=== PATIENT | male | born 1960 | race Two or more races ===

== ENCOUNTER 2023-05-30 08:29 | Inpatient (IN) | payer OTHER, MEDICAID ==
[2023-05-30] VITALS (29 sets, daily range): BP systolic 77–120; BP diastolic 46–57; PULSE 82–118; RESP 16–40; TEMP 99.1–100.6; O2SAT 85–100
[~2023-05-30] VITALS: Ht 167.6 cm; Wt 135.4 kg
[2023-05-30] MEDS: DOPamine 1600MCG/ML D5W 250 ML IV SCH (08:41)
[2023-05-30] MEDS: MIDAZOLAM DRIP 50 mg/50mL 50 ML IV SCH (08:45)
[2023-05-30] MEDS: EPINEPHrine HCL 250 ML IV SCH (08:45)
[2023-05-30] MEDS: SODIUM BICARB 8.4% 50Meq/50ml SYR Vial IV ONE (08:46)
[2023-05-30] MEDS: SODIUM BICARB 8.4% 50Meq/50ml SYR INJ ONE (08:59)
[2023-05-30] MEDS: EPINEPHrine HCL 250 ML IV ONE (08:59)
[2023-05-30] MEDS: AMIODARONE BOLUS KIT 100 ML IV ONE (08:59)
[2023-05-30 09:05] LABS: Eosinophils # (auto) 0 10 ^3/uL (0-0.8); Lymphocytes % (auto) 18.3 % (10.0-50.0); Mean Corpuscular Volume 84.9 fL (80.0-100.0); Monocytes # (auto) 0.4 10 ^3/uL (0-1.3)
[2023-05-30 09:08] LABS: Basophils # (auto) 0 10 ^3/uL (0-0.2); Basophils % (auto) 0.2 % (0.0-2.0); Eosinophils % (auto) 0.2 % (0.0-7.0); Hematocrit 36.3 % (41.0-53.0); Hemoglobin 11.5 g/dL (13.5-17.5); Lymphocytes # (auto) 2.5 10 ^3/uL (0.4-5.4); Mean Corpuscular Hgb Conc. 31.8 g/dL (32.0-36.0); Monocytes % (auto) 2.6 % (0.0-12.0); Neutrophils # (auto) 10.8 10 ^3/uL (1.6-8.6); Neutrophils % (auto) 78.7 % (37.0-80.0); Red Blood Cells 4.27 10^6/uL (4.5-5.90); Red Cell Distribution Width 14.1 % (11.8-14.3); White Blood Cell 13.7 10^3/uL (4.4-10.8)
[2023-05-30 09:25] LABS: Alanine Aminotransferase 234 U/L (7-40); Albumin 2.9 g/dL (3.2-4.8); Alkaline Phosphatase 82 U/L (46-116); Anion Gap 15 (5-15); Aspartate Aminotransferase 210 U/L (13-40); BUN/Creatinine Ratio 14.7 (10.0-20.0); Blood Urea Nitrogen 10 mg/dL (9-23); Calcium 7.5 mg/dL (8.7-10.4); Carbon Dioxide 25 mmol/L (20-30); Chloride 98 mmol/L (98-107); Glucose 291 mg/dL (74-106); Magnesium 2.5 mg/dL (1.6-2.6); Potassium 3.4 mmol/L (3.5-5.1); Sodium 138 mmol/L (136-145)
[2023-05-30 09:26] LABS: Bilirubin, Total 0.3 mg/dL (0.2-1.0); Total Protein 5.1 g/dL (5.7-8.2)
[2023-05-30 09:28] LABS: INR 1.8 (0.9-1.15); Partial Thromboplastin Time 34.4 SEC (24.5-34.5); Prothrombin Time 18.2 sec (9.3-11.8)
[2023-05-30] MEDS: NOREPINEPHRINE 8 MG/250ML KIT 250 ML IV ONE (09:45)
[2023-05-30] MEDS: AMIODARONE 450mg/250ml AE 250 ML IV SCH ×2 (09:52→15:12)
[2023-05-30] MEDS: NOREPINEPHRINE 8 MG/250ML KIT 250 ML IV SCH (09:53)
[2023-05-30 10:01] LABS: Base Excess -4.2 mmol/L (-2.0-2.0)
[2023-05-30 11:03] LABS: COVID19 ANTIGEN SOFIA FIA NEGATIVE (NEGATIVE)
[2023-05-30 11:07] LABS: Rapid Influenza A Negative (Negative); Rapid Influenza B Negative (Negative)
[2023-05-30] MEDS ORDERED: HEPARIN DRIP/D5W 100UNITS/ML 250 ML IV SCH (11:30)
[2023-05-30] MEDS: IOHEXOL 350 MG/ML 100ML IJ ONE (11:49)
[2023-05-30] MEDS: PHENYLEPHRINE IV 250 ML IV ONE (11:56)
[2023-05-30] MEDS: VASOPRESSIN 20 UNITS in SODIUM CHL 0.9% 99 ML IV SCH (11:57)
[2023-05-30] MEDS ORDERED: HEPARIN SODIUM (PORCINE) 5000 UNITS/ML 1ML VIAL IV ONE (12:00)
[2023-05-30] MEDS: AZITHROMYCIN 500MG/ 250ML 250 ML IV ONE (12:24)
[2023-05-30 12:35] LABS: Urine Bacteria NONE SEEN /hpf (None Seen); Urine Blood 1+ /uL (Negative); Urine Clarity Clear (Clear); Urine Color Colorless (Yellow); Urine Mucus FEW (None Seen); Urine Protein, UAD 1+ (Negative); Urine Specific Gravity 1.031 (1.001-1.035); Urine Urobilinogen Normal (Negative); Urine WBC 14 /hpf (0 - 3); Urine pH 5.5 (5.0-8.0)
[2023-05-30 12:41] LABS: Amphetamine Screen, Urine Neg (NEGATIVE); Barbiturate Scree,Urine Neg (NEGATIVE); Benzodiazephine Screen, Urine Pos (NEGATIVE); Cocaine Screen, Urine Neg (NEGATIVE); Opiate Scree,Urine Neg (NEGATIVE)
[2023-05-30 12:42] LABS: Cannabinoid Screen, Urine Neg (NEGATIVE); Phencyclidine Screen, Urine Neg (NEGATIVE)
[2023-05-30] MEDS: ALBUTEROL SULF 2.5 MG/0.5ML(0.5%) NEB SOLN NEB ONE (12:42)
[2023-05-30] MEDS: PIPERACILLIN-TAZOB 3.375GM 100 ML IV ONE (12:55)
[2023-05-30] MEDS ORDERED: ONDANSETRON HCL 4 MG/2 ML VIAL IV PRN (13:15)
[2023-05-30] MEDS ORDERED: DEXTROSE (50%) 50ML SYRG IV PRN (13:15)
[2023-05-30] MEDS ORDERED: VANCOMYCIN PER PHARMACY 0 MG IV SCH (13:15)
[2023-05-30 13:55] LABS: INR 1.11 (0.9-1.15); Prothrombin Time 11.6 sec (9.3-11.8)
[2023-05-30] MEDS: POTASSIUM CHL 20MEQ/100ML 100 ML IV ONE (14:50)
[2023-05-30] MEDS: VANCOMYCIN 1GM/200ML 200 ML IV SCH (14:52)
[2023-05-30] MEDS: CEFEPIME 2GM/50ML NS 50 ML IV SCH (15:02)
[2023-05-30 15:04] LABS: Lactic Acid w/Reflex 3.3 mmol/L (0.4-2.0)
[2023-05-30] MEDS: fentaNYL Drip 2500mCg/250mlNS 250 ML IV SCH ×2 (15:41→17:06)
[2023-05-30] MEDS: ACETAMINOPHEN 650 mg PER 20.3 mL UD ONE (16:01)
[2023-05-30] MEDS: ACETAMINOPHEN 650 mg PER 20.3 mL UD PO PRN (16:18)
[2023-05-30 16:55] LABS: Free T3 3.39 pg/mL (2.3-4.2); Free T4 (Free Thyroxine) 1.17 ng/dL (0.89-1.76)
[2023-05-30] MEDS: fentaNYL Drip 2500mCg/250mlNS 250 ML IV ONE (17:10)
[2023-05-30] MEDS: InsuLIN REG 1unit/0.01ml Soln (100units/ml) SC SCH (18:00)
[2023-05-30] MEDS: ACCU-CHEK COMFORT CURVE STRIP VI SCH (18:00)
[2023-05-30] MEDS: ENOXAPARIN SOD 150 MG/1 ML SYRINGE SC SCH (21:39)
[2023-05-30] MEDS: NYSTATIN TOPICAL POWDER 15GM TOP SCH (21:49)
[2023-05-31] VITALS (106 sets, daily range): BP systolic 89–139; BP diastolic 29–71; PULSE 76–89; RESP 15–26; TEMP 98.3–101.5; O2SAT 94–100
[2023-05-31 04:07] LABS: Basophils # (auto) 0 10 ^3/uL (0-0.2); Eosinophils # (auto) 0 10 ^3/uL (0-0.8); Monocytes # (auto) 0.7 10 ^3/uL (0-1.3)
[2023-05-31 04:10] LABS: Hematocrit 39.3 % (41.0-53.0); Lymphocytes # (auto) 1.1 10 ^3/uL (0.4-5.4); Lymphocytes % (auto) 5.6 % (10.0-50.0); Mean Corpuscular Hemoglobin 27.3 pg (28.0-32.0); Mean Corpuscular Volume 82.7 fL (80.0-100.0); Monocytes % (auto) 3.5 % (0.0-12.0); Neutrophils % (auto) 90.9 % (37.0-80.0); Red Blood Cells 4.76 10^6/uL (4.5-5.90); Red Cell Distribution Width 14.2 % (11.8-14.3); White Blood Cell 19.9 10^3/uL (4.4-10.8)
[2023-05-31 04:33] LABS: Alanine Aminotransferase 223 U/L (7-40); Albumin 3.7 g/dL (3.2-4.8); Alkaline Phosphatase 87 U/L (46-116); Anion Gap 11 (5-15); Aspartate Aminotransferase 98 U/L (13-40); BUN/Creatinine Ratio 11.8 (10.0-20.0); Bilirubin, Total 0.4 mg/dL (0.2-1.0); Blood Urea Nitrogen 10 mg/dL (9-23); Calcium 9.1 mg/dL (8.5-10.1); Carbon Dioxide 24 mmol/L (20-30); Chloride 99 mmol/L (98-107); Cholesterol 100 mg/dL (< 200); Glucose 341 mg/dL (74-106); HDL Cholesterol 45 mg/dL (40-59); LDL Cholesterol 36 mg/dL (< 100); Potassium 4.1 mmol/L (3.5-5.1); Sodium 134 mmol/L (136-145); Total Protein 6.7 g/dL (5.7-8.2); Triglycerides 72 mg/dL (< 150)
[2023-05-31 04:55] LABS: Magnesium 2.1 mg/dL (1.6-2.6)
[2023-05-31 06:23] LABS: Base Excess -0.3 mmol/L (-2.0-2.0)
[2023-05-31] MEDS ORDERED: ENOXAPARIN SOD 40 MG/0.4 ML SYRINGE SC SCH ×2 (10:00→14:03)
[2023-05-31] MEDS ORDERED: DEXTROSE (50%) 50ML SYRG IV PRN (10:30)
[2023-05-31] MEDS: ACCU-CHEK COMFORT CURVE STRIP VI SCH (11:10)
[2023-05-31] MEDS: InsuLIN REG 1unit/0.01ml Soln (100units/ml) SC SCH (11:55)
[2023-05-31] MEDS: ALBUTEROL SULF 2.5 MG/0.5ML(0.5%) NEB SOLN NEB SCH (12:18)
[2023-05-31] MEDS: IPRATROPIUM BROM 0.5 MG/2.5ML INH SOL NEB SCH (12:18)
[2023-05-31] MEDS: LIDOCAINE 1% (LOCAL ANESTH.) PF 5ml SDV ID ONE (15:07)
[2023-05-31] MEDS: SODIUM CHLOR 0.9% PF (SALINE LOCK) 10ML VIAL/SYR IV SCH (21:42)
[2023-06-01] VITALS (107 sets, daily range): BP systolic 78–156; BP diastolic 25–87; PULSE 63–93; RESP 13–24; TEMP 98.6–100.9; O2SAT 92–100
[2023-06-01 03:49] LABS: Basophils % (auto) 0.3 % (0.0-2.0); Eosinophils # (auto) 0 10 ^3/uL (0-0.8); Hematocrit 34.8 % (41.0-53.0); Hemoglobin 11.3 g/dL (13.5-17.5); Monocytes # (auto) 0.7 10 ^3/uL (0-1.3); Neutrophils # (auto) 13.7 10 ^3/uL (1.6-8.6)
[2023-06-01 03:52] LABS: Basophils # (auto) 0.1 10 ^3/uL (0-0.2); Eosinophils % (auto) 0.1 % (0.0-7.0); Lymphocytes # (auto) 1.8 10 ^3/uL (0.4-5.4); Lymphocytes % (auto) 11.2 % (10.0-50.0); Mean Corpuscular Hemoglobin 26.6 pg (28.0-32.0); Mean Corpuscular Hgb Conc. 32.3 g/dL (32.0-36.0); Mean Corpuscular Volume 82.3 fL (80.0-100.0); Monocytes % (auto) 4.3 % (0.0-12.0); Neutrophils % (auto) 84.1 % (37.0-80.0); Red Blood Cells 4.23 10^6/uL (4.5-5.90); Red Cell Distribution Width 14.5 % (11.8-14.3); White Blood Cell 16.3 10^3/uL (4.4-10.8)
[2023-06-01 04:10] LABS: Alanine Aminotransferase 141 U/L (7-40); Albumin 3.5 g/dL (3.2-4.8); Alkaline Phosphatase 79 U/L (46-116); Anion Gap 6 (5-15); Aspartate Aminotransferase 61 U/L (13-40); BUN/Creatinine Ratio 24.3 (10.0-20.0); Bilirubin, Total 0.4 mg/dL (0.2-1.0); Blood Urea Nitrogen 17 mg/dL (9-23); Carbon Dioxide 28 mmol/L (20-30); Chloride 102 mmol/L (98-107); Potassium 3.6 mmol/L (3.5-5.1); Sodium 136 mmol/L (136-145); Total Protein 6.2 g/dL (5.7-8.2)
[2023-06-01 04:29] LABS: INR 1.08 (0.9-1.15); Partial Thromboplastin Time 41.2 SEC (24.5-34.5); Prothrombin Time 11.3 sec (9.3-11.8)
[2023-06-01 04:31] LABS: Glucose 210 mg/dL (74-106)
[2023-06-01 07:05] LABS: Base Excess 1.8 mmol/L (-2.0-2.0)
[2023-06-01] MEDS ORDERED: ENOXAPARIN SOD 40 MG/0.4 ML SYRINGE SC SCH (10:00)
[2023-06-01] MEDS: PANTOPRAZOLE 40 MG/10 ML VIAL INJ IV SCH (10:10)
[2023-06-01] MEDS: APIXABAN 5 MG TAB PO SCH (10:11)
[2023-06-01] MEDS: HYDROCORTISONE SOD SUCC 100 MG/2ML INJ VIAL IV SCH (10:11)
[2023-06-01] MEDS: AMIODARONE HCL 200 MG TAB PO SCH (10:11)
[2023-06-01] MEDS: FLECAINIDE ACETATE 50 MG TAB PO SCH (22:08)
[2023-06-02] VITALS (60 sets, daily range): BP systolic 110–154; BP diastolic 55–82; PULSE 80–105; RESP 16–25; TEMP 97–99.9; O2SAT 92–98
[2023-06-02 04:15] LABS: Basophils # (auto) 0 10 ^3/uL (0-0.2); Basophils % (auto) 0.2 % (0.0-2.0); Eosinophils # (auto) 0 10 ^3/uL (0-0.8); Hematocrit 32.1 % (41.0-53.0); Hemoglobin 10.6 g/dL (13.5-17.5); Lymphocytes # (auto) 1.2 10 ^3/uL (0.4-5.4); Lymphocytes % (auto) 12.6 % (10.0-50.0); Mean Corpuscular Hemoglobin 27.5 pg (28.0-32.0); Mean Corpuscular Hgb Conc. 33.2 g/dL (32.0-36.0); Mean Corpuscular Volume 82.9 fL (80.0-100.0); Monocytes # (auto) 0.4 10 ^3/uL (0-1.3); Monocytes % (auto) 4.6 % (0.0-12.0); Neutrophils # (auto) 7.8 10 ^3/uL (1.6-8.6); Neutrophils % (auto) 82.6 % (37.0-80.0); Red Blood Cells 3.87 10^6/uL (4.5-5.90); Red Cell Distribution Width 14.4 % (11.8-14.3); White Blood Cell 9.5 10^3/uL (4.4-10.8)
[2023-06-02 05:00] LABS: Alanine Aminotransferase 93 U/L (7-40); Alkaline Phosphatase 74 U/L (46-116)
[2023-06-02 05:01] LABS: Albumin 3.3 g/dL (3.2-4.8); Anion Gap 6 (5-15); Aspartate Aminotransferase 59 U/L (13-40); BUN/Creatinine Ratio 30.9 (10.0-20.0); Bilirubin, Total 0.4 mg/dL (0.2-1.0); Blood Urea Nitrogen 17 mg/dL (9-23); Carbon Dioxide 27 mmol/L (20-30); Chloride 103 mmol/L (98-107); Glucose 203 mg/dL (74-106); Potassium 4.3 mmol/L (3.5-5.1); Sodium 136 mmol/L (136-145)
[2023-06-02 07:23] LABS: Base Excess 2.2 mmol/L (-2.0-2.0)
[2023-06-02 08:36] LABS: Hepatitis B Surface Antigen Negative (Negative)
[2023-06-02 08:57] LABS: Hepatitis A Ab IgM Negative
[2023-06-02 08:58] LABS: Hepatitis B Core IgM Negative; Hepatitis C Antibody Negative (Negative)
[2023-06-02] MEDS: Glucerna 1.2 Cal 1Liter BOTTLE GT SCH (21:35)
[2023-06-03] VITALS (114 sets, daily range): BP systolic 117–168; BP diastolic 56–85; PULSE 67–96; RESP 14–26; TEMP 97.7–99.7; O2SAT 94–99
[2023-06-03 07:23] LABS: Base Excess 1.5 mmol/L (-2.0-2.0)
[2023-06-03] MEDS: METOPROLOL TARTRATE 25 MG TAB GT ONE (11:07)
[2023-06-03] MEDS: VANCOMYCIN 1GM/200ML 200 ML IV SCH (12:05)
[2023-06-03] MEDS: METOPROLOL TARTRATE 25 MG TAB GT SCH (21:45)
[2023-06-04] VITALS (117 sets, daily range): BP systolic 114–180; BP diastolic 57–107; PULSE 66–118; RESP 12–27; TEMP 97.3–99.5; O2SAT 90–99
[2023-06-04 06:54] LABS: Base Excess 2.6 mmol/L (-2.0-2.0)
[2023-06-04] MEDS: hydrALAZINE HCL 20 MG/ML VL IV PRN (13:11)
[2023-06-04] MEDS: METOPROLOL TARTRATE 25 MG TAB GT SCH (21:27)
[2023-06-05] VITALS (105 sets, daily range): BP systolic 111–188; BP diastolic 57–106; PULSE 73–113; RESP 10–26; TEMP 97.9–98.9; O2SAT 93–98
[2023-06-05 04:14] LABS: Hematocrit 36.2 % (41.0-53.0); Hemoglobin 11.8 g/dL (13.5-17.5)
[2023-06-05 04:18] LABS: Mean Corpuscular Hemoglobin 26.7 pg (28.0-32.0); Mean Corpuscular Hgb Conc. 32.6 g/dL (32.0-36.0); Mean Corpuscular Volume 81.8 fL (80.0-100.0); Red Blood Cells 4.42 10^6/uL (4.5-5.90); Red Cell Distribution Width 14.5 % (11.8-14.3); White Blood Cell 12.3 10^3/uL (4.4-10.8)
[2023-06-05 04:22] LABS: Chloride 104 mmol/L (98-107); Potassium 3.8 mmol/L (3.5-5.1); Sodium 137 mmol/L (136-145)
[2023-06-05 04:23] LABS: Anion Gap 6 (5-15); Carbon Dioxide 27 mmol/L (20-30)
[2023-06-05 04:24] LABS: Calcium 8.8 mg/dL (8.7-10.4)
[2023-06-05 04:28] LABS: BUN/Creatinine Ratio 31.1 (10.0-20.0); Blood Urea Nitrogen 14 mg/dL (9-23); Glucose 179 mg/dL (74-106)
[2023-06-05 04:33] LABS: Basophils % (manual) 0 (0.0-2.0); Blast Cells 0; Eosinophils % (manual) 0 (0-7); Metamyelocytes % 0; Promyelocytes % 0; Reactive Lymphocytes 0
[2023-06-05 07:34] LABS: Base Excess 0.8 mmol/L (-2.0-2.0)
[2023-06-05 08:06] LABS: Anisocytosis Slight; Band Neutrophils % (manual) 6; Lymphocytes % (manual) 12 (10.0-50.0); Monocytes % (manual) 7 (0-12); Myelocytes % 1; Platelet Estimate Adequate
[2023-06-06] VITALS (91 sets, daily range): BP systolic 104–166; BP diastolic 54–84; PULSE 70–119; RESP 11–30; TEMP 98.3–99; O2SAT 94–100
[2023-06-06 03:48] LABS: Hemoglobin 11.2 g/dL (13.5-17.5); Mean Corpuscular Hgb Conc. 32.8 g/dL (32.0-36.0); Mean Corpuscular Volume 82.1 fL (80.0-100.0); Red Blood Cells 4.14 10^6/uL (4.5-5.90); Red Cell Distribution Width 14.5 % (11.8-14.3); White Blood Cell 11.3 10^3/uL (4.4-10.8)
[2023-06-06 03:58] LABS: Basophils % (manual) 0 (0.0-2.0); Blast Cells 0; Promyelocytes % 0; Reactive Lymphocytes 0
[2023-06-06 04:09] LABS: Anion Gap 6 (5-15); Calcium 8.9 mg/dL (8.7-10.4); Carbon Dioxide 27 mmol/L (20-30); Chloride 103 mmol/L (98-107); Potassium 4.1 mmol/L (3.5-5.1); Sodium 136 mmol/L (136-145)
[2023-06-06 04:15] LABS: BUN/Creatinine Ratio 31.3 (10.0-20.0); Blood Urea Nitrogen 15 mg/dL (9-23); Glucose 179 mg/dL (74-106)
[2023-06-06 05:22] LABS: Band Neutrophils % (manual) 4; Eosinophils % (manual) 2 (0-7); Lymphocytes % (manual) 14 (10.0-50.0); Metamyelocytes % 1; Monocytes % (manual) 5 (0-12); Myelocytes % 1; Platelet Estimate Adequate; RBC Morphology Normal
[2023-06-06 07:12] LABS: Base Excess 1.9 mmol/L (-2.0-2.0)
[2023-06-06] MEDS: DOXYCYCLINE 100 MG TAB/CAP PO SCH (10:34)
[2023-06-06] MEDS: METOCLOPRAMIDE HCL 5MG/ml INJ 2ml VIAL IV SCH (14:14)
[2023-06-07] VITALS (88 sets, daily range): BP systolic 92–185; BP diastolic 45–97; PULSE 76–111; RESP 12–27; TEMP 98.4–99.9; O2SAT 93–98
[2023-06-07 02:42] LABS: Basophils # (auto) 0 10 ^3/uL (0-0.2); Basophils % (auto) 0.2 % (0.0-2.0); Eosinophils # (auto) 0.1 10 ^3/uL (0-0.8); Eosinophils % (auto) 0.8 % (0.0-7.0); Hematocrit 34.1 % (41.0-53.0); Hemoglobin 11.1 g/dL (13.5-17.5); Lymphocytes # (auto) 1.3 10 ^3/uL (0.4-5.4); Lymphocytes % (auto) 11.9 % (10.0-50.0); Mean Corpuscular Hemoglobin 26.6 pg (28.0-32.0); Mean Corpuscular Hgb Conc. 32.4 g/dL (32.0-36.0); Monocytes # (auto) 0.8 10 ^3/uL (0-1.3); Neutrophils # (auto) 8.9 10 ^3/uL (1.6-8.6); Neutrophils % (auto) 80.1 % (37.0-80.0); Nucleated Red Blood Cells % 0.1 %; Red Blood Cells 4.16 10^6/uL (4.5-5.90); Red Cell Distribution Width 14.5 % (11.8-14.3); White Blood Cell 11.1 10^3/uL (4.4-10.8)
[2023-06-07 02:46] LABS: Chloride 103 mmol/L (98-107); Sodium 135 mmol/L (136-145)
[2023-06-07 02:47] LABS: Anion Gap 5 (5-15); Calcium 8.9 mg/dL (8.7-10.4); Carbon Dioxide 27 mmol/L (20-30)
[2023-06-07 02:52] LABS: BUN/Creatinine Ratio 32.6 (10.0-20.0); Blood Urea Nitrogen 15 mg/dL (9-23); Glucose 181 mg/dL (74-106)
[2023-06-07 07:03] LABS: Base Excess 3.8 mmol/L (-2.0-2.0)
[2023-06-07] MEDS: LACTULOSE 20Gm/30ML SOLN GT SCH (09:33)
[2023-06-07] MEDS: D5W/SOD CHLO 0.9% 1,000 ML IV ONE (10:17)
[2023-06-08] VITALS (86 sets, daily range): BP systolic 94–174; BP diastolic 51–100; PULSE 71–116; RESP 13–30; TEMP 98.1–99.7; O2SAT 94–100
[2023-06-08 03:49] LABS: Basophils # (auto) 0 10 ^3/uL (0-0.2); Basophils % (auto) 0.2 % (0.0-2.0); Eosinophils # (auto) 0.1 10 ^3/uL (0-0.8); Eosinophils % (auto) 0.5 % (0.0-7.0); Hematocrit 36.1 % (41.0-53.0); Hemoglobin 11.6 g/dL (13.5-17.5); Lymphocytes # (auto) 1.4 10 ^3/uL (0.4-5.4); Mean Corpuscular Hemoglobin 26.5 pg (28.0-32.0); Mean Corpuscular Hgb Conc. 32.2 g/dL (32.0-36.0); Mean Corpuscular Volume 82.5 fL (80.0-100.0); Monocytes # (auto) 0.7 10 ^3/uL (0-1.3); Monocytes % (auto) 5.2 % (0.0-12.0); Neutrophils # (auto) 10.7 10 ^3/uL (1.6-8.6); Neutrophils % (auto) 83.1 % (37.0-80.0); Red Blood Cells 4.37 10^6/uL (4.5-5.90); Red Cell Distribution Width 14.6 % (11.8-14.3); White Blood Cell 12.9 10^3/uL (4.4-10.8)
[2023-06-08 03:55] LABS: INR 1.14 (0.9-1.15); Partial Thromboplastin Time 36.4 SEC (24.5-34.5); Prothrombin Time 11.9 sec (9.3-11.8)
[2023-06-08 04:01] LABS: Alanine Aminotransferase 93 U/L (7-40); Albumin 3.7 g/dL (3.2-4.8); Alkaline Phosphatase 130 U/L (46-116); Anion Gap 5 (5-15); Aspartate Aminotransferase 42 U/L (13-40); BUN/Creatinine Ratio 34.8 (10.0-20.0); Blood Urea Nitrogen 16 mg/dL (9-23); Calcium 9.2 mg/dL (8.7-10.4); Carbon Dioxide 26 mmol/L (20-30); Chloride 108 mmol/L (98-107); Glucose 180 mg/dL (74-106); Potassium 3.1 mmol/L (3.5-5.1); Sodium 139 mmol/L (136-145)
[2023-06-08 04:02] LABS: Bilirubin, Total 0.5 mg/dL (0.2-1.0); Total Protein 6.8 g/dL (5.7-8.2)
[2023-06-08] MEDS: POTASSIUM CHL 20MEQ/100ML 100 ML IV ONE ×2 (06:51→07:13)
[2023-06-08 07:43] LABS: Base Excess -2.8 mmol/L (-2.0-2.0)
[2023-06-08] MEDS: D5W/SOD CHL 0.9%/KCL 40MEQ 1,000 ML IV SCH (10:22)
[2023-06-08] MEDS: PIPERACILLIN-TAZOB 3.375GM 100 ML IV SCH (12:02)
[2023-06-08] MEDS: ARTIFICIAL TEARS 15ml EACHEYE PRN (16:32)
[2023-06-09] VITALS (82 sets, daily range): BP systolic 96–179; BP diastolic 47–101; PULSE 60–96; RESP 9–23; TEMP 98.2–98.8; O2SAT 95–100
[2023-06-09 02:16] LABS: Basophils # (auto) 0.1 10 ^3/uL (0-0.2); Basophils % (auto) 0.5 % (0.0-2.0); Eosinophils # (auto) 0.1 10 ^3/uL (0-0.8); Monocytes # (auto) 0.6 10 ^3/uL (0-1.3); Monocytes % (auto) 4.9 % (0.0-12.0)
[2023-06-09 02:18] LABS: Hematocrit 34.1 % (41.0-53.0); Hemoglobin 10.7 g/dL (13.5-17.5); Lymphocytes # (auto) 1.3 10 ^3/uL (0.4-5.4); Lymphocytes % (auto) 10.6 % (10.0-50.0); Mean Corpuscular Hemoglobin 25.8 pg (28.0-32.0); Mean Corpuscular Hgb Conc. 31.3 g/dL (32.0-36.0); Mean Corpuscular Volume 82.5 fL (80.0-100.0); Neutrophils # (auto) 9.9 10 ^3/uL (1.6-8.6); Red Blood Cells 4.13 10^6/uL (4.5-5.90); Red Cell Distribution Width 15.1 % (11.8-14.3); White Blood Cell 11.9 10^3/uL (4.4-10.8)
[2023-06-09 02:25] LABS: Chloride 111 mmol/L (98-107); Potassium 3.2 mmol/L (3.5-5.1); Sodium 143 mmol/L (136-145)
[2023-06-09 02:26] LABS: Anion Gap 7 (5-15); Calcium 8.7 mg/dL (8.7-10.4); Carbon Dioxide 25 mmol/L (20-30)
[2023-06-09 02:31] LABS: BUN/Creatinine Ratio 30.6 (10.0-20.0); Blood Urea Nitrogen 15 mg/dL (9-23); Glucose 252 mg/dL (74-106)
[2023-06-09 08:07] LABS: Base Excess -0.1 mmol/L (-2.0-2.0)
[2023-06-09] MEDS: D5W/SOD CHL 0.9%/KCL 40MEQ 1,000 ML IV SCH (11:00)
[2023-06-09] MEDS: POTASSIUM EFFERVESENT TAB 25 MEQ PO ONE (12:08)
[2023-06-09] MEDS ORDERED: DEXTROSE (50%) 50ML SYRG IV PRN (12:15)
[2023-06-09] MEDS: InsuLIN REG 1unit/0.01ml Soln (100units/ml) SC SCH (17:50)
[2023-06-09] MEDS: ACCU-CHEK COMFORT CURVE STRIP VI SCH (18:00)
[2023-06-10] VITALS (110 sets, daily range): BP systolic 90–154; BP diastolic 38–90; PULSE 58–85; RESP 11–27; TEMP 97.5–98.6; O2SAT 97–100
[2023-06-10 03:38] LABS: Basophils # (auto) 0 10 ^3/uL (0-0.2); Basophils % (auto) 0.4 % (0.0-2.0); Eosinophils # (auto) 0.2 10 ^3/uL (0-0.8); Eosinophils % (auto) 1.8 % (0.0-7.0); Hematocrit 31.9 % (41.0-53.0); Hemoglobin 10.3 g/dL (13.5-17.5); Lymphocytes # (auto) 1.2 10 ^3/uL (0.4-5.4); Lymphocytes % (auto) 13.7 % (10.0-50.0); Mean Corpuscular Hgb Conc. 32.4 g/dL (32.0-36.0); Mean Corpuscular Volume 83.3 fL (80.0-100.0); Monocytes # (auto) 0.5 10 ^3/uL (0-1.3); Monocytes % (auto) 5.7 % (0.0-12.0); Neutrophils # (auto) 6.7 10 ^3/uL (1.6-8.6); Neutrophils % (auto) 78.4 % (37.0-80.0); Red Blood Cells 3.82 10^6/uL (4.5-5.90); Red Cell Distribution Width 14.8 % (11.8-14.3); White Blood Cell 8.6 10^3/uL (4.4-10.8)
[2023-06-10 03:49] LABS: Chloride 110 mmol/L (98-107); Sodium 142 mmol/L (136-145)
[2023-06-10 03:50] LABS: Anion Gap 4 (5-15); Carbon Dioxide 28 mmol/L (20-30)
[2023-06-10 03:51] LABS: Calcium 8.8 mg/dL (8.7-10.4)
[2023-06-10 03:55] LABS: BUN/Creatinine Ratio 28.6 (10.0-20.0); Blood Urea Nitrogen 12 mg/dL (9-23); Glucose 228 mg/dL (74-106)
[2023-06-10 07:21] LABS: Base Excess 3.8 mmol/L (-2.0-2.0)
[2023-06-10] MEDS: FREE WATER GT SCH (11:38)
[2023-06-11] VITALS (114 sets, daily range): BP systolic 91–163; BP diastolic 39–87; PULSE 52–83; RESP 7–20; TEMP 97.5–98.6; O2SAT 97–100
[2023-06-11 04:31] LABS: Basophils # (auto) 0 10 ^3/uL (0-0.2); Basophils % (auto) 0.5 % (0.0-2.0); Eosinophils # (auto) 0.2 10 ^3/uL (0-0.8); Eosinophils % (auto) 2.2 % (0.0-7.0); Hematocrit 32.7 % (41.0-53.0); Hemoglobin 10.7 g/dL (13.5-17.5); Lymphocytes # (auto) 1.5 10 ^3/uL (0.4-5.4); Lymphocytes % (auto) 16.7 % (10.0-50.0); Mean Corpuscular Hgb Conc. 32.6 g/dL (32.0-36.0); Mean Corpuscular Volume 82.7 fL (80.0-100.0); Monocytes # (auto) 0.4 10 ^3/uL (0-1.3); Monocytes % (auto) 4.7 % (0.0-12.0); Neutrophils % (auto) 75.9 % (37.0-80.0); Red Blood Cells 3.95 10^6/uL (4.5-5.90); Red Cell Distribution Width 14.4 % (11.8-14.3); White Blood Cell 9.2 10^3/uL (4.4-10.8)
[2023-06-11 05:17] LABS: Anion Gap 7 (5-15); Carbon Dioxide 29 mmol/L (20-30); Chloride 104 mmol/L (98-107); Potassium 3.8 mmol/L (3.5-5.1); Sodium 140 mmol/L (136-145)
[2023-06-11 05:23] LABS: BUN/Creatinine Ratio 25.5 (10.0-20.0); Blood Urea Nitrogen 12 mg/dL (9-23); Glucose 201 mg/dL (74-106)
[2023-06-11 05:46] LABS: Calcium 9.2 mg/dL (8.5-10.1)
[2023-06-11 07:07] LABS: Base Excess 1.6 mmol/L (-2.0-2.0)
[2023-06-12] VITALS (108 sets, daily range): BP systolic 93–151; BP diastolic 37–78; PULSE 53–76; RESP 8–24; TEMP 97.3–98.4; O2SAT 97–100
[2023-06-12 07:40] LABS: Base Excess 4.8 mmol/L (-2.0-2.0)
[2023-06-12] MEDS: METOCLOPRAMIDE HCL 5MG/ml INJ 2ml VIAL IV SCH (12:41)
[2023-06-12 14:17] LABS: Basophils # (auto) 0 10 ^3/uL (0-0.2); Basophils % (auto) 0.5 % (0.0-2.0); Eosinophils # (auto) 0.1 10 ^3/uL (0-0.8); Eosinophils % (auto) 1.5 % (0.0-7.0); Hematocrit 30.1 % (41.0-53.0); Hemoglobin 9.8 g/dL (13.5-17.5); Lymphocytes # (auto) 1.3 10 ^3/uL (0.4-5.4); Lymphocytes % (auto) 16.3 % (10.0-50.0); Mean Corpuscular Hgb Conc. 32.5 g/dL (32.0-36.0); Monocytes # (auto) 0.4 10 ^3/uL (0-1.3); Monocytes % (auto) 4.9 % (0.0-12.0); Neutrophils # (auto) 6.2 10 ^3/uL (1.6-8.6); Neutrophils % (auto) 76.8 % (37.0-80.0); Red Blood Cells 3.63 10^6/uL (4.5-5.90); Red Cell Distribution Width 14.6 % (11.8-14.3); White Blood Cell 8.1 10^3/uL (4.4-10.8)
[2023-06-12 14:23] LABS: Chloride 99 mmol/L (98-107); Potassium 3.6 mmol/L (3.5-5.1)
[2023-06-12 14:24] LABS: Anion Gap 6 (5-15); Carbon Dioxide 27 mmol/L (20-30)
[2023-06-12 14:29] LABS: Blood Urea Nitrogen 6 mg/dL (9-23)
[2023-06-12 14:31] LABS: Glucose 379 mg/dL (74-106); Sodium 132 mmol/L (136-145)
[2023-06-13] VITALS (90 sets, daily range): BP systolic 73–174; BP diastolic 33–92; PULSE 54–150; RESP 12–31; TEMP 95.2–100.9; O2SAT 35–100
[2023-06-13 07:11] LABS: Base Excess 4.6 mmol/L (-2.0-2.0)
[2023-06-13] MEDS: ACETAMINOPHEN IV 100 ML IV ONE (09:35)
[2023-06-13] MEDS: LORazepam 2MG/ML-1ML VIAL IV PRN ×2 (12:05→14:23)
[2023-06-13] MEDS: MORPHINE SULFATE INJ 2 MG/ml SYRG IV PRN (12:05)
[2023-06-13] MEDS: MORPHINE SULFATE INJ 2 MG/ml SYRG IV ONE (14:10)
[2023-06-13] MEDS: GLYCOPYRROLATE 0.2 MG/ML 1ML VIAL IV ONE ×2 (14:31→16:07)
[2023-06-13] MEDS: MORPHINE SULFATE 4 MG/ML SYR/VIAL IV ONE (16:07)
[2023-06-13] MEDS: MORPHINE SULFATE 4 MG/ML SYR/VIAL IV PRN (17:17)
[2023-06-14] VITALS (37 sets, daily range): BP systolic 56–87; BP diastolic 23–46; PULSE 59–131; RESP 13–30; TEMP 98.6–100; O2SAT 43–67
== END 2023-06-14 15:22 | DRG 870 ==
LOC: EDBD 08:29 → ER 08:29 → EDBD 13:17 → TELE 13:17 → ICU WEST 17:23 → EAST 06-14 09:29
PROVIDERS: ADMIT Nurse Practitioner Family; ATTEND Nurse Practitioner Acute Care
PROC: 5A1955Z Respiratory Ventilation, Greater than 96 Consecutive Hours (ICD-10-PCS; principal; 2023-05-30)
PROC: 0BH17EZ Insertion of Endotracheal Airway into Trachea, Via Natural or Artificial Opening (ICD-10-PCS; 2023-05-30)
PROC: 5A12012 Performance of Cardiac Output, Single, Manual (ICD-10-PCS; 2023-05-30)
PROC: 06HY33Z Insertion of Infusion Device into Lower Vein, Percutaneous Approach (ICD-10-PCS; 2023-05-30)
PROC: 02HV33Z Insertion of Infusion Device into Superior Vena Cava, Percutaneous Approach (ICD-10-PCS; 2023-05-31)
PROC: B548ZZA Ultrasonography of Superior Vena Cava, Guidance (ICD-10-PCS; 2023-05-31)
DX: A41.89 Other specified sepsis (principal); G92.8 Other toxic encephalopathy; G93.6 Cerebral edema; J11.08 Influenza due to unidentified influenza virus with specified pneumonia; J96.01 Acute respiratory failure with hypoxia; J96.02 Acute respiratory failure with hypercapnia; K72.00 Acute and subacute hepatic failure without coma; R65.21 Severe sepsis with septic shock; G93.5 Compression of brain; I50.43 Acute on chronic combined systolic (congestive) and diastolic (congestive) heart failure; E44.1 Mild protein-calorie malnutrition; E87.29 Other acidosis; G93.1 Anoxic brain damage, not elsewhere classified; J98.11 Atelectasis; Z99.11 Dependence on respirator [ventilator] status; Z68.42 Body mass index [BMI] 45.0-49.9, adult; I47.20 Ventricular tachycardia, unspecified; I46.9 Cardiac arrest, cause unspecified; D64.9 Anemia, unspecified; E11.51 Type 2 diabetes mellitus with diabetic peripheral angiopathy without gangrene; E11.65 Type 2 diabetes mellitus with hyperglycemia; E66.01 Morbid (severe) obesity due to excess calories; E78.5 Hyperlipidemia, unspecified; B96.1 Klebsiella pneumoniae [K. pneumoniae] as the cause of diseases classified elsewhere; E87.5 Hyperkalemia; I11.0 Hypertensive heart disease with heart failure; I48.91 Unspecified atrial fibrillation; Z74.01 Bed confinement status; Z79.01 Long term (current) use of anticoagulants; Z79.4 Long term (current) use of insulin
CPT/HCPCS: 31500; 36415; 36556; 36569; 36600; 70450; 71045; 71275; 80048; 80053; 80061; 80074; 80202; 80307; 81001; 82565; 82805; 82962; 83036; 83605; 83735; 84100; 84439; 84443; 84481; 84484; 85007; 85025; 85027; 85379; 85610; 85730; 87040; 87070; 87077; 87081; 87086; 87186; 87205; 87426; 87804; 93005; 93306; 93926; 93970; 94002; 94003; 94640; 95819; 99291; C9113; G0378; J0131; J0171; J0692; J1815; J2250; J2543; J3480